=== PATIENT | female | born 1985 | race American Indian/Alaskan Native ===

== ENCOUNTER 2022-05-08 15:09 | Emergency (ER) | payer SELFPAY ==
[2022-05-08 15:23] VITALS: BP 118/77
== END 2022-05-09 02:16 | disposition left against medical advice (07) ==
LOC: ED 15:09
DX: Z20.2 Contact with and (suspected) exposure to infections with a predominantly sexual mode of transmission (principal); Z53.21 Procedure and treatment not carried out due to patient leaving prior to being seen by health care provider